=== PATIENT | female | born 1955 | race Caucasian/White ===

== ENCOUNTER → 2017-02-06 | Day surgery (SDC) | payer OTHER ==
[~2017-02-06] VITALS: Ht 144.8 cm; Wt 50.0 kg
[~2017-02-06] MED LIST: ALEN70TA51 PO; Atropine 0.4 mg/mL Inj IVPUSH PRN; Clindamycin Inj 900 MG in IV Premix 1 EACH IV ONE; Dexamethasone 4 mg/mL Inj IVPUSH PRN; EPHEDrine Sulfate 50 mg/mL Inj IVPUSH PRN; HYDR-4003 PO; HYDROcodone-APAP 5-325 mg Tablet PO PRN; HYDROmorphone 1 mg/mL Inj IVPUSH PRN; Ketorolac 15 mg/mL Inj IVPUSH PRN; Labetalol 5 mg/mL 20 mL Inj IV PRN; Lactated Ringer's 1,000 ML IV ONE; Lactated Ringer's 1,000 ML IV SCH; Lactated Ringer's 500 ML IV PRN; MetoCLOpramide 5 mg/mL 2 mL Inj IVPUSH PRN; Ondansetron 2 mg/mL 2 mL Inj IVPUSH PRN; Phenylephrine 10,000 mCg/mL Inj IVPUSH PRN; Propofol 10,000 mCg/mL 20 mL Inj ONE; fentaNYL-PF 50 mCg/mL 2 mL Inj IVPUSH PRN; fentaNYL-PF 50 mCg/mL 2 mL Inj ONE; hydrALAZINE 20 mg/mL Inj IVPUSH PRN
[2017-02-06 06:20] VITALS: BP 123/75; PULSE 56; RESP 18; O2SAT 97
--- NOTE | 2017-02-06 06:57 | PCM.HPANE ---
Patient Data Date of Service: Feb 06, 2017 Surgeon Admitting Provider: Attending Provider:Demi rBaun DPM Primary Care Physician:Michelle Miramontes Other Provider:Chiki Brewer Anesthesia Reason for Visit Right Foot Hallux Valgus, Pronation Ht/WT & BMI Height (Feet): 4 Height (Inches): 9.00 Weight (Kilograms): 50.000 Body Mass Index 23.00 Allergies Coded Allergies: bee venom protein (honey bee) (Verified Allergy, Severe, shortness of breath, 02/02/17) Penicillins (Verified Allergy, Unknown, 02/02/17) Past Anesthesia History Anesthesia History: Denies:: Abnormal Airway, Anesthesia Reactions, Difficult Intubation, Fam Anesthesia Reaction, Fam Malignant Hypertherm, Malignant Hyperthermia Diabetes History Hx Diabetes?: No MRSA MRSA: No Medications Hypertension Medication: No Home Meds Incl Beta Jeison: No Reported Medications Alendronate (Binosto)70 Mg Tablet.eff70 Mg PO WEEKLY 02/02/17 Discontinued Reported Medications Aspirin-Expunged Drug, Do Not Renew! (Aspirin EC-Expunged Drug, Do Not Renew!) 81 Mg Xjunam56 Mg PO DAILY DO NOT CRUSH 02/20/13 Calcium Carbonate (Caltrate 600)600 Mg [id number] Mg PO TIDWM 02/20/13 Cholecalciferol-Expunged Drug, Do Not Renew! (Vitamin D3-Expunged Drug, Do Not Renew!)50 Ml [id number] U Oral Tidwm 02/20/13 Alendronate-Expunged Drug, Do Not Renew! 70 Mg [id number] Mg PO Q7D Stopped 02/20/13 02/20/13 Discontinued Scripts Nitroglycerin-Expunged Drug, Do Not Renew! (Nitroglycerin SL-Expunged Drug, Do Not Renew!)0.4 Mg Subl0.4 Mg SL Q5MIN PRN #20 Prov:Merrill Vincent MD 02/22/13 Diltiazem-Expunged Drug, Do Not Renew! (Diltiazem CD-Expunged Drug, Do Not Renew !)120 Mg [id number] Mg PO DAILY #30 Ref 1 Prov:Merrill Vincent MD 02/22/13 History History of ENT Problems?: No HEENT History: Denies:: Abnormal Airway Difficult Intubation Dysphagia Hearing Problem Sinus Problem TMJ Denture Type: None Teeth Condition: Within Normal Limits Hx of Heart Problems?: Yes Cardiovascular History: Positive for:: Chest Pain (non-cardiac related) Irregular Heartbeat Denies:: Congestive Heart Failure Edema Heart Murmur Hypertension Pacemaker Hx of Respiratory Problem?: No Respiratory History: Denies:: Pneumonia Pulmonary Embolism Tuberculosis Use of C-PAP Machine Hx Neurologic Problems?: No Neurological History: Denies:: Alzheimer's Disease CVA Dementia Dizziness Headaches Multiple Sclerosis Parkinson's Disease Seizures TIA Hx of GI Problems?: No Hx of Problems?: No Female Hx: Positive for:: Problems with Breasts? (Left lumpectomy) Skin History: Denies:: History Skin Disorders? Pressure Ulcers Hx Musculoskeletal Problems?: Yes (osteoporosis) Hx of Psycho/Social Problems?: No Hx Surgeries?: Yes (Left lumpectomy, portacath placement (removed)) Hx Any Other Health Problems?: Yes Other History: Positive for:: Cancer (Left Breast Ca stage 2 in remission) Denies:: Hospitalization Thyroid Disease History Blood Transfusions: Positive for:: Accept Blood Products? Denies:: Blood Transfuse Reaction Blood Transfusions Hx Diabetes: No Hx Alcohol Use: NoHx Substance Use: No Smoking Status: Never Smoker Stop/Bang Treated for Sleep Apnea?: No Do You Have a CPAP Machine?: No S-Snoring: Do You Snore Loudly: No T-Tired: feel tired, fatigued: No O-Obsered: Observed not breath: No P-Blood Pressure: treated: No B- Body Mass Index > 35 kg/m2: No A- Age over 50: Yes N- Neck Large Circumference: No G- Gender Male: No NARA Total Score: 1 Risk Assessment Category Category 1A: Patient has history of documented sleep apnea, and HAS NOT received any narcotic, sedative or anesthesia administration during this stay. Category 1B: Patient has history of documented sleep apnea, and HAS received any narcotic , sedative or anesthesia administration during this stay Category 2: Patient has SUSPECTED Obstructive Sleep Apnea, and HAS received any narcotic , sedative or anesthesia administration during this stay. Category 3: Patient has SUSPECTED Obstructive Sleep Apnea and HAS NOT received narcotic, sedative or anesthesia administration during this stay. Category 4: Outpatient in Procedural Areas with known sleep apnea or who screen positive for High Risk via the STOP/BANG questionnaire. Exam Exam Vital Signs Vital Signs Date Time Temp Pulse Resp B/P Pulse Ox O2 Delivery O2 Flow Rate FiO2 02/06/17 06:20 36.9 56 18 123/75 97 Room Air General Appearance: Alert, Oriented X3 HEENT/AIRWAY: MP 3, Mouth Opening (very limited) Lungs: Clear to Auscultation, Normal Air Movement Heart: Regular Rate/Rhythm, Normal S1, Normal S2 Plan Impression Patient chart reviewed, patient interviewed and anesthestic plan with risks, benefits, and alternatives discussed, and informed consent obtained. NPO per Anesth. Guidelines: Yes ASA Physical Status: ASA2 Mod Systemic Disease Anesthetic Plan: MAC Bene/Risks/Altern/Consents: Yes HP Complete Prior to Induction: Yes Pavel Faustin MD Feb 06, 2017 06:57
[2017-02-06 08:48] VITALS: BP 124/73; PULSE 59; RESP 18; O2SAT 97
--- NOTE | 2017-02-06 09:08 | PCM.PODPO ---
Podiatry Operative Report Date of Service: Feb 06, 2017 Date of Service Feb 06, 2017 Pre Operative Diagnosis Right hallux valgus, medial column hypermobility Post Operative Diagnosis Right hallux valgus, medial column hypermobility Procedure Right bunionectomy with first metatarsal stabilization using a mini tight rope and Vidal osteotomy Surgeon Surgeon: Demi Braun DPM Assistants: None Indication for Procedure Pain in the first metatarsophalangeal joint, interfering with shoe gear and ambulation Findings Intact first metatarsophalangeal joint cartilage, thinning noted on the metatarsal head laterally. Meniscoid capsule impingement. Details of Procedure The patient was identified in the preoperative holding area and brought back to the operating room. She was placed on the operating table in supine position. The timeout protocol was completed in the patient's name and site of surgery confirmed. IV sedation was initiated and the patient's right foot anesthetized with 1% lidocaine plain The right foot was prepped and draped in usual aseptic manner and the ankle tourniquet inflated to 250 mmHg. The incision was made on the dorsomedial aspect of the first metatarsophalangeal joint. It was deepened bluntly, undermined at the level of the capsule on the medial side. A lateral release of the adductor tendon was performed. The fibular sesamoid was aligned properly and a release was not necessary. A capsular linear incision was made on the dorsal aspect of the first metatarsophalangeal joint. A second skin incision was made on the dorsolateral aspect of the second metatarsal shaft. A K wire with a suture passer attached to it was inserted through the second metatarsal at the level of the metatarsal neck and drilled through the first metatarsal exiting medially the mini tight rope FiberWire suture was then loaded and pulled through the second and first metatarsals, with the button in place on the lateral aspect of the second metatarsal. The construct was tightened, the second button loaded on the medial aspect of the first metatarsal neck, and suture tied, using fluoroscopy for guidance for the level of correction. The excess medial eminence was excised with the bone saw. The proximal phalanx osteotomy was performed, taking out at 3 mm wedge on the medial aspect of the proximal phalangeal shaft with the apex laterally and proximally. The osteotomy was closed and fixated with a 2.4 mm cortical screw, achieving adequate correction. Irrigation was performed with normal saline and the ankle tourniquet was released after 29 minutes. Bleeding vessels were cauterized where needed. The tibial sesamoid suspensory ligaments was repaired using 3-0 Vicryl, the capsule was closed with 3-0 Vicryl. The subcutaneous tissue was closed with 3-0 Vicryl, the skin with 4-0 Prolene. The dressing consisted of Barron silk, sterile normal saline moistened 4 x 4 gauze, Kerlix, and Coban. The patient was weaned off of IV sedation and taken to Day Surgery with vital signs stable and the vascular status to the right foot intact. Grafts, Implants: Implants-See Implant Record Complications There were no periprocedural complications identified. Condition Stable Anesthetic Administered: MAC Drains: None Catheters: None Output, Estimated Blood Loss: 5 (ml) Blood Admin during surgery: No Surgical Cast or Splint: Post-op Boot Surgical Specimen Removed: No Specimen sent to Pathology: No Post Operative Plan Weightbearing as tolerated in a postoperative shoe. Keep the dressing clean, dry, and intact until follow-up visit. Elevation and icing is imperative for the first 48 hours. Demi Braun DPM Feb 06, 2017 09:08
[2017-02-06 09:32] VITALS: BP 135/81; PULSE 53; RESP 18; O2SAT 98
--- NOTE | 2017-02-06 09:33 | PCM.ANEP1 ---
Post Anesthesia PACU Phase 1 Assessment Date of Service: Feb 06, 2017 Vital Signs Vital Signs Date Time Temp Pulse Resp B/P Pulse Ox O2 Delivery O2 Flow Rate FiO2 02/06/17 08:48 36.0 59 18 124/73 97 Room Air 02/06/17 06:20 36.9 56 18 123/75 97 Room Air Anesthetic Administered: MAC Level of Alertness: Awake, talking JEROME's with Equal Strength: Yes Pain: No Nausea or Vomiting: No CV Function & Hydration Stable: Yes Airway Device: Oxygen Delivery: Room Air Lungs: Normal Air Movement Dermatome Level: Full Sensation PACU Phase 2 Assessment Complications: No Follow up Care: N/A Patient Instructions Provided: N/A Pavel Faustin MD Feb 06, 2017 09:33
== END | disposition home or self-care (01) ==
LOC: SAS 05:37
PROVIDERS: ATTEND Podiatrist
DX: M20.11 Hallux valgus (acquired), right foot (principal); M19.90 Unspecified osteoarthritis, unspecified site; M85.80 Other specified disorders of bone density and structure, unspecified site; R13.10 Dysphagia, unspecified; Z85.3 Personal history of malignant neoplasm of breast
CPT/HCPCS: 28296; C1713; J2250; J2704; J3010; J3490; J7120